=== PATIENT | male | born 1945 | race Two or more races ===

== ENCOUNTER 2019-12-05 13:22 | Inpatient (IN) | payer MEDICARE, MEDICAID ==
[~2019-12-05] VITALS: Ht 182.9 cm; Wt 63.5 kg
[2019-12-05] MEDS: ACCU-CHEK COMFORT CURVE STRIP VI SCH ×2 (11:00→22:17)
[2019-12-05] MEDS ORDERED: SODIUM CHLORIDE 0.9% 1,000 ML IVB ONE ×2 (14:03→14:54)
[2019-12-05 14:54] LABS: Hematocrit 36.5 % (41.0-53.0); Hemoglobin 11.7 g/dL (13.5-17.5); Mean Corpuscular Hgb Conc. 31.9 g/dL (32.0-36.0); Mean Corpuscular Volume 90.8 fL (80.0-100.0); Platelet Count (auto) 313 10^3/uL (140-450); Red Blood Cells 4.02 10^6/uL (4.5-5.90); Red Cell Distribution Width 16.6 % (11.8-14.3); White Blood Cell 25.5 10^3/uL (4.4-10.8)
[2019-12-05] MEDS ORDERED: cefTRIAXone 1GM/50ML D5W 50 ML IV ONE (15:00)
[2019-12-05 15:06] LABS: Alanine Aminotransferase 21 U/L (16-61); Albumin 2.4 g/dL (3.4-5.0); Anion Gap 11 (5-15); Aspartate Aminotransferase 36 U/L (15-37); BUN/Creatinine Ratio 29.9; Blood Urea Nitrogen 40 mg/dL (7-18); Calcium 12.4 mg/dL (8.5-10.1); Carbon Dioxide 22 mmol/L (21-32); Chloride 98 mmol/L (98-107); GFR African American 67 mL/min; GFR Non-African American 56 mL/min; Glucose 133 mg/dL (74-106); Potassium 3.5 mmol/L (3.5-5.1); Sodium 131 mmol/L (136-145)
[2019-12-05 15:08] LABS: Alkaline Phosphatase 82 U/L (45-117); Bilirubin, Total 0.6 mg/dL (0.2-1.0); Total Protein 5.8 g/dL (6.4-8.2)
[2019-12-05 15:09] LABS: Magnesium 1.9 mg/dL (1.6-2.6)
[2019-12-05 15:23] LABS: Basophils % (manual) 0 (0.0-2.0); Blast Cells 0; Eosinophils % (manual) 0 (0-7); Metamyelocytes % 0; Promyelocytes % 0; Reactive Lymphocytes 0
[2019-12-05 16:24] LABS: Band Neutrophils % (manual) 5; Lymphocytes % (manual) 6 (10.0-50.0); Monocytes % (manual) 7 (0-12); Myelocytes % 2
[2019-12-05] MEDS ORDERED: ASPirin-EC 81 mg tab PO ONE (16:30)
[2019-12-05] MEDS ORDERED: AZITHROMYCIN 500MG/ 250ML 250 ML IV ONE (16:30)
[2019-12-05] MEDS ORDERED: NITROGLYCERIN 0.4 MG SL TAB SL PRN (16:45)
[2019-12-05] MEDS ORDERED: SODIUM CHLORIDE 0.9% 1,000 ML IV ONE ×2 (16:45→17:00)
[2019-12-05] MEDS ORDERED: LACTULOSE 20Gm/30ML SOLN PO PRN (16:45)
[2019-12-05] MEDS ORDERED: OSELTAMIVIR 75 MG CAP PO ONE (16:45)
[2019-12-05] MEDS ORDERED: DEXTROSE (50%) 50ML SYRG IV PRN (16:45)
[2019-12-05] MEDS ORDERED: ONDANSETRON HCL 4 MG/2 ML VIAL IV PRN (16:45)
[2019-12-05] MEDS ORDERED: MORPHINE SULF INJ 2 MG/ML SYRINGE 1ML IV PRN (16:45)
[2019-12-05] MEDS ORDERED: ACETAMINOPHEN 500 MG TAB PO PRN (16:45)
[2019-12-05] MEDS ORDERED: ALBUTEROL SULF 2.5 MG/0.5ML(0.5%) NEB SOLN NEB PRN (16:45)
[2019-12-05] MEDS ORDERED: POTASSIUM EFFERVESENT TAB 25 MEQ PO ONE (17:00)
[2019-12-05] MEDS ORDERED: FUROSEMIDE 40 MG/4 ML VIAL IV ONE (17:00)
[2019-12-05 18:21] VITALS: BP 117/70
[2019-12-05 20:00] VITALS: BP 125/74
[2019-12-05 22:00] VITALS: BP 125/74
[2019-12-05] MEDS: OSELTAMIVIR 30 MG CAP PO SCH (22:00)
[2019-12-05 22:03] VITALS: BP 96/60
[2019-12-05] MEDS: POTASSIUM EFFERVESENT TAB 25 MEQ GT SCH (22:10)
[2019-12-05] MEDS: FAMOTIDINE 20 MG TAB PO SCH (22:11)
[2019-12-05] MEDS: CLINDAMYCIN 600MG IV 50 ML IV SCH (22:11)
[2019-12-05] MEDS: SODIUM CHLORIDE 0.9% 1,000 ML IV SCH (22:15)
[2019-12-05] MEDS: IPRATROPIUM BROM 0.5 MG/2.5ML INH SOL NEB SCH ×2 (23:27→23:28)
[2019-12-05] MEDS: ALBUTEROL SULF 2.5 MG/0.5ML(0.5%) NEB SOLN NEB SCH ×2 (23:27→23:28)
[2019-12-06] MEDS: SODIUM CHLORIDE 0.9% 1,000 ML IV SCH ×3 (00:44→16:44)
[2019-12-06] MEDS: traMADol HCL 50 MG TAB PO PRN ×2 (00:47→22:23)
[2019-12-06] MEDS ORDERED: PRED15SO23 GT (02:53)
[2019-12-06] MEDS ORDERED: SULF400I3 PO (02:53)
[2019-12-06] MEDS ORDERED: ONDA-143 PO (02:53)
[2019-12-06] MEDS ORDERED: NIAC500T71 PO (02:53)
[2019-12-06] MEDS ORDERED: PROM25TA5 PO (02:53)
[2019-12-06] MEDS ORDERED: CHOL20007 PO (02:53)
[2019-12-06] MEDS ORDERED: CHOL200039 PO (02:53)
[2019-12-06] MEDS ORDERED: MULT-228 PO (02:53)
[2019-12-06] MEDS ORDERED: ASPI-404 PO (02:53)
[2019-12-06] MEDS ORDERED: SENN8.6T26 PO (02:53)
[2019-12-06] MEDS ORDERED: METF-370 PO (02:53)
[2019-12-06] MEDS ORDERED: ACYC1CAP23 PO (02:53)
[2019-12-06] MEDS ORDERED: LEVO250T69 PO (02:53)
[2019-12-06] MEDS ORDERED: CYCL1TAB18 PO (02:53)
[2019-12-06] MEDS ORDERED: CALCTAB25 PO (02:53)
[2019-12-06] MEDS ORDERED: NYS5LQ MT (02:53)
[2019-12-06 05:20] LABS: Basophils # (auto) 0 10 ^3/uL (0-0.2); Basophils % (auto) 0.1 % (0.0-2.0); Eosinophils # (auto) 0 10 ^3/uL (0-0.8); Eosinophils % (auto) 0.2 % (0.0-7.0); Hemoglobin 10.6 g/dL (13.5-17.5); Lymphocytes # (auto) 2.1 10 ^3/uL (0.4-5.4); Lymphocytes % (auto) 8.9 % (10.0-50.0); Mean Corpuscular Hgb Conc. 33.1 g/dL (32.0-36.0); Mean Corpuscular Volume 90.4 fL (80.0-100.0); Monocytes # (auto) 1.2 10 ^3/uL (0-1.3); Monocytes % (auto) 5.2 % (0.0-12.0); Neutrophils # (auto) 20.1 10 ^3/uL (1.6-8.6); Neutrophils % (auto) 85.6 % (37.0-80.0); Platelet Count (auto) 291 10^3/uL (140-450); Red Blood Cells 3.54 10^6/uL (4.5-5.90); Red Cell Distribution Width 16.5 % (11.8-14.3); White Blood Cell 23.5 10^3/uL (4.4-10.8)
[2019-12-06 05:35] LABS: Albumin 2.2 g/dL (3.4-5.0); Calcium 12.3 mg/dL (8.5-10.1); Potassium 3.8 mmol/L (3.5-5.1)
[2019-12-06 05:38] LABS: Bilirubin, Total 0.5 mg/dL (0.2-1.0); Total Protein 5.5 g/dL (6.4-8.2)
[2019-12-06 05:49] VITALS: BP 122/66
[2019-12-06] MEDS ORDERED: FUROSEMIDE 20 MG/2 ML VIAL IV SCH (06:00)
[2019-12-06] MEDS: CLINDAMYCIN 600MG IV 50 ML IV SCH ×2 (06:26→14:18)
[2019-12-06] MEDS: ACCU-CHEK COMFORT CURVE STRIP VI SCH ×4 (06:59→21:54)
[2019-12-06] MEDS ORDERED: FUROSEMIDE 100 MG/10ML VIAL IV ONE (07:00)
[2019-12-06] MEDS: ALBUTEROL SULF 2.5 MG/0.5ML(0.5%) NEB SOLN NEB SCH ×3 (07:55→19:16)
[2019-12-06] MEDS: IPRATROPIUM BROM 0.5 MG/2.5ML INH SOL NEB SCH ×3 (07:55→19:16)
[2019-12-06 09:19] VITALS: BP 125/68
[2019-12-06] MEDS: POTASSIUM EFFERVESENT TAB 25 MEQ GT SCH (09:25)
[2019-12-06] MEDS: FAMOTIDINE 20 MG TAB PO SCH (09:25)
[2019-12-06] MEDS ORDERED: MAGNESIUM OXIDE 400 MG TAB PO ONE (09:45)
[2019-12-06] MEDS ORDERED: levoFLOXacin 500MG 100 ML IV SCH (10:00)
[2019-12-06] MEDS ORDERED: ENOXAPARIN SOD 40 MG/0.4 ML SYRINGE SC SCH (10:00)
[2019-12-06] MEDS ORDERED: ASPirin 81 mg TAB PO SCH (10:00)
[2019-12-06] MEDS: OSELTAMIVIR 30 MG CAP PO SCH (10:00)
[2019-12-06 10:03] LABS: Urine Bacteria NONE SEEN /hpf (None Seen); Urine Blood 1+ /uL (Negative); Urine Mucus FEW (None Seen); Urine Specific Gravity 1.008 (1.001-1.035); Urine WBC 2 /hpf (0 - 3)
[2019-12-06] MEDS ORDERED: GOLYTELY 4L KIT PO ONE (11:15)
[2019-12-06 11:56] VITALS: BP 124/59
[2019-12-06] MEDS ORDERED: levoFLOXacin 250MG 50 ML IV ONE (12:15)
[2019-12-06] MEDS ORDERED: ZOLEDRONIC ACID 2 MG in SODIUM CHL 0.9% 100 ML IV ONE (12:45)
[2019-12-06 17:00] VITALS: BP 92/43
[2019-12-06 20:00] VITALS: BP 131/64
[2019-12-06] MEDS: PIPERACILLIN-TAZOB 3.375GM 100 ML IV SCH (21:24)
[2019-12-06 22:00] VITALS: BP 131/64
[2019-12-07] VITALS (13 sets, daily range): BP systolic 58–180; BP diastolic 34–80
[2019-12-07] MEDS: SODIUM CHLORIDE 0.9% 1,000 ML IV SCH ×2 (00:30→10:11)
[2019-12-07] MEDS: IPRATROPIUM BROM 0.5 MG/2.5ML INH SOL NEB SCH ×3 (00:34→11:35)
[2019-12-07] MEDS: ALBUTEROL SULF 2.5 MG/0.5ML(0.5%) NEB SOLN NEB SCH ×3 (00:34→11:35)
[2019-12-07 05:52] LABS: Hematocrit 30.1 % (41.0-53.0); Mean Corpuscular Hemoglobin 30.4 pg (28.0-32.0); Mean Corpuscular Hgb Conc. 33.3 g/dL (32.0-36.0); Mean Corpuscular Volume 91.2 fL (80.0-100.0); Platelet Count (auto) 227 10^3/uL (140-450); Red Cell Distribution Width 16.2 % (11.8-14.3); White Blood Cell 27.8 10^3/uL (4.4-10.8)
[2019-12-07] MEDS: ACCU-CHEK COMFORT CURVE STRIP VI SCH ×2 (06:05→11:30)
[2019-12-07] MEDS: PIPERACILLIN-TAZOB 3.375GM 100 ML IV SCH ×2 (06:05→14:00)
[2019-12-07 06:13] LABS: Basophils % (manual) 0 (0.0-2.0); Blast Cells 0; Eosinophils % (manual) 0 (0-7); Metamyelocytes % 0; Myelocytes % 0; Promyelocytes % 0
[2019-12-07 06:15] LABS: BUN/Creatinine Ratio 22.3; Calcium 12.8 mg/dL (8.5-10.1); Potassium 3.3 mmol/L (3.5-5.1)
[2019-12-07 06:56] LABS: Band Neutrophils % (manual) 2; Lymphocytes % (manual) 12 (10.0-50.0); Monocytes % (manual) 3 (0-12); Reactive Lymphocytes 1
[2019-12-07] MEDS ORDERED: POTASSIUM CHL 20 Meq TABLET PO ONE (08:30)
[2019-12-07] MEDS: FAMOTIDINE 20 MG TAB PO SCH (10:00)
[2019-12-07] MEDS ORDERED: levoFLOXacin 750MG 150 ML IV SCH (10:00)
[2019-12-07] MEDS ORDERED: NOREPINEPHRINE 8 MG/250ML KIT 250 ML IV SCH ×2 (12:13→12:31)
[2019-12-07] MEDS ORDERED: PROPOFOL 100 ML IV SCH (12:34)
[2019-12-07] MEDS ORDERED: MIDAZOLAM DRIP 50 mg/50mL 50 ML IV SCH (12:34)
[2019-12-07] MEDS ORDERED: methylPREDNISolone SOD SUCC 40 MG/ML VL ONE (12:37)
[2019-12-07] MEDS ORDERED: methylPREDNISolone SOD SUCC 125 MG/2 ML VL IV ONE (12:45)
[2019-12-07] MEDS ORDERED: SUCCINYLCHOLINE CHLORIDE 20 MG/ML 10ML VIAL IV ONE (12:47)
[2019-12-07] MEDS ORDERED: ETOMIDATE (2MG/ML) 20ML VIAL IV ONE ×2 (12:48→14:30)
[2019-12-07] MEDS ORDERED: ROCURONIUM 10MG/ML 10ML VIAL IV ONE (12:48)
[2019-12-07 14:42] LABS: INR 1.67 (0.9-1.15)
[2019-12-07] MEDS ORDERED: SODIUM CHLORIDE 0.9% 1,000 ML IV SCH (14:45)
[2019-12-07] MEDS ORDERED: EPINEPHrine HCL 250 ML IV ONE (16:11)
[2019-12-07] MEDS ORDERED: EPINEPHrine HCL INJECTION 4 MG in SODIUM CHL 0.9% 250 ML IV SCH (16:15)
[2019-12-07] MEDS ORDERED: SODIUM BICARBONATE 8.4% INJ 50ML SYRINGE ONE (16:16)
[2019-12-07] MEDS ORDERED: EPINEPHrine HCL 1 MG/10 ML SYRG ONE (16:26)
[2019-12-07] MEDS ORDERED: LINEZOLID 600MG/300ML 300 ML IV SCH (18:00)
[2019-12-07] MEDS ORDERED: EPINEPHrine HCL 1 MG/10 ML SYRG IV ONE (19:11)
[2019-12-07] MEDS ORDERED: FAMOTIDINE (10MG/ML) 2ML VL IV SCH (22:00)
[2019-12-07] MEDS ORDERED: methylPREDNISolone SOD SUCC 40 MG/ML VL IV SCH (22:00)
== END 2019-12-07 23:37 | disposition expired | DRG 208 ==
LOC: EDBD 13:22 → ER 13:28 → TELE 13:29 → TELE-EAST 18:09 → ICU WEST 12-07 15:00
PROVIDERS: ADMIT Internal Medicine; ATTEND Internal Medicine
PROC: 5A1935Z Respiratory Ventilation, Less than 24 Consecutive Hours (ICD-10-PCS; principal; 2019-12-07)
PROC: 0BH17EZ Insertion of Endotracheal Airway into Trachea, Via Natural or Artificial Opening (ICD-10-PCS; 2019-12-07)
PROC: 03HY33Z Insertion of Infusion Device into Upper Artery, Percutaneous Approach (ICD-10-PCS; 2019-12-07)
PROC: 02HV33Z Insertion of Infusion Device into Superior Vena Cava, Percutaneous Approach (ICD-10-PCS; 2019-12-07)
PROC: B548ZZA Ultrasonography of Superior Vena Cava, Guidance (ICD-10-PCS; 2019-12-07)
DX: J69.0 Pneumonitis due to inhalation of food and vomit (principal); A41.9 Sepsis, unspecified organism; I21.4 Non-ST elevation (NSTEMI) myocardial infarction; J96.00 Acute respiratory failure, unspecified whether with hypoxia or hypercapnia; G92 Toxic encephalopathy; R65.21 Severe sepsis with septic shock; E44.0 Moderate protein-calorie malnutrition; C34.90 Malignant neoplasm of unspecified part of unspecified bronchus or lung; K92.2 Gastrointestinal hemorrhage, unspecified; N17.9 Acute kidney failure, unspecified; C79.51 Secondary malignant neoplasm of bone; C79.31 Secondary malignant neoplasm of brain; Z68.1 Body mass index [BMI] 19.9 or less, adult; E87.1 Hypo-osmolality and hyponatremia; K21.9 Gastro-esophageal reflux disease without esophagitis; I12.9 Hypertensive chronic kidney disease with stage 1 through stage 4 chronic kidney disease, or unspecified chronic kidney disease; Z66 Do not resuscitate; N18.9 Chronic kidney disease, unspecified; E86.0 Dehydration; D64.9 Anemia, unspecified; E11.22 Type 2 diabetes mellitus with diabetic chronic kidney disease; E83.52 Hypercalcemia; M31.6 Other giant cell arteritis; Z79.52 Long term (current) use of systemic steroids; Z79.84 Long term (current) use of oral hypoglycemic drugs; Z87.891 Personal history of nicotine dependence; Z79.899 Other long term (current) drug therapy; J44.9 Chronic obstructive pulmonary disease, unspecified
CPT/HCPCS: 36415; 36600; 70450; 71045; 80048; 80053; 81001; 82270; 82550; 82805; 82962; 83036; 83605; 83735; 83880; 84484; 85007; 85025; 85027; 85610; 87040; 87070; 87077; 87081; 87186; 87205; 87804; 93005; 93306; 94002; 94640; G0378; G9035; J0171; J0330; J0696; J1956; J2250; J2543; J2704; J3489; J3490